=== PATIENT | male | born 1985 | race African-American/Black ===

== ENCOUNTER 2016-05-03 01:52 | Emergency (ER) | payer OTHER ==
[~2016-05-03] VITALS: Ht 167.6 cm; Wt 73.0 kg
[2016-05-03] MEDS ORDERED: SODIUM CHLORIDE 0.9% 1,000 ML IV ONE (10:35)
[2016-05-03 11:26] LABS: HEMATOCRIT. 47.9 % (42.0-52.0); HEMOGLOBIN. 15.9 g/dL (14.0-18.0); MEAN CORPUSCULAR HEMOGLOBIN 29.9 pg (28.0-32.0); MEAN CORPUSCULAR HGB CONC 33.2 g/dL (31.0-37.0); MEAN CORPUSCULAR VOLUME 90.2 fL (80.0-94.0); MEAN PLATELET VOLUME 7.3 fl (7.4-10.4); PLATELET 274 x1000/uL (130-400); RED BLOOD CELL COUNT 5.32 mill/uL (4.7-6.1); RED CELL DISTRIBUTION WIDTH 14.5 % (11.6-14.6); WHITE BLOOD COUNT 9.5 x1000/uL (4.5-11.0)
[2016-05-03 11:29] LABS: DIFFERENTIAL COMMENT 1
[2016-05-03 11:34] LABS: INR 1.3; PARTIAL THROMBOPLASTIN TIME 27.5 sec (24.0-34.0); PROTHROMBIN TIME 13.3 sec
[2016-05-03 11:39] LABS: ANION GAP 14; CALCIUM 9.5 mg/dL (8.5-10.1); CARBON DIOXIDE 30 mEq/L (21-32); CHLORIDE 101 mEq/L (98-107); INDEX HEMOLYSI 1 (1-3); INDEX ICTERIC 1 (1-4); INDEX LIPEMIC 1 (1-3); PLATELET ESTIMATE NORMAL; UREA NITROGEN BLOOD 15 mg/dL (7-21); eGFR > 60 mL/min (>60)
[2016-05-03 12:00] VITALS: BP 128/74
[2016-05-03] MEDS ORDERED: TRAMADOL 50MG TABLET PO ONE (12:45)
[2016-05-03] MEDS ORDERED: SODIUM CHLORIDE 0.9% 10ML VIAL ONE (13:48)
[2016-05-03] MEDS ORDERED: IOHEXOL-300 100 ML BOTTLE ONE (13:48)
== END 2016-05-03 13:45 | disposition home or self-care (01) ==
LOC: ER 01:55
DX: S30.0XXA Contusion of lower back and pelvis, initial encounter (principal); S60.221A Contusion of right hand, initial encounter; S30.1XXA Contusion of abdominal wall, initial encounter; R53.1 Weakness; R10.30 Lower abdominal pain, unspecified; M79.601 Pain in right arm; M79.641 Pain in right hand; M25.562 Pain in left knee; M25.552 Pain in left hip; R51 Headache; R03.0 Elevated blood-pressure reading, without diagnosis of hypertension; V43.42XA Person boarding or alighting a car injured in collision with other type car, initial encounter; Y93.89 Activity, other specified; Y92.488 Other paved roadways as the place of occurrence of the external cause; N28.1 Cyst of kidney, acquired
CPT/HCPCS: 36415; 71010; 73502; 73560; 74177; 80048; 85025; 85610; 85730; 86850; 86900; 86901; 96360; 96361; 99285; A4216; Q9967; Z7610; J7030